=== PATIENT | male | born 1945 | race Hispanic/Latino ===

== ENCOUNTER 2025-01-16 12:28 | Emergency (ER) | payer MEDICARE ==
[~2025-01-16] VITALS: Ht 182.9 cm; Wt 88.1 kg
[2025-01-16] MEDS ORDERED: LIPITOR10 MG PO (14:07)
[2025-01-16] MEDS ORDERED: HYDROCHLOROTHIA25 MG PO (14:07)
[2025-01-16] MEDS ORDERED: AMLOD-VALSA-HC1 EAC4 PO (14:07)
[2025-01-16] MEDS ORDERED: SUPER-D3+ SOFT1 EACH PO (14:08)
[2025-01-16] MEDS ORDERED: CLONAZEPAM0.5 MG PO (14:09)
[2025-01-16] MEDS ORDERED: FLOMAX0.4 MG PO (14:09)
[2025-01-16] MEDS ORDERED: SODIUM CHLORIDE 0.9% 500 ML IV ONE (14:15)
[2025-01-16] MEDS ORDERED: ondansetron HCL 4 MG/2 ML VIAL IV ONE (14:15)
[2025-01-16 14:51] LABS: BASOPHILS 0.4 % (0-2); HEMOGLOBIN 13.6 g/dL (12.0-18.0); MCH 20.3 (27-36)
[2025-01-16 14:54] LABS: EOSINOPHILS 0.3 % (0-6); HEMATOCRIT 41.2 % (35.0-50.0); LYMPHOCYTES 10.9 % (24-44); MCHC 33.1 g/dl (30-36); MCV 61.4 fl (81-99); MONOCYTES 3.8 % (0-12); NEUTROPHILS 84.6 % (39-80); PLATELET COUNT 110 K/uL (140-440); RBC 6.71 M/ul (4.3-5.7); RDW 17.7 (10.5-15.0)
[2025-01-16 15:07] LABS: ALBUMIN 3.6 g/dL (3.4-5.0); ALBUMIN/GLOBULIN RATIO 1.06 (1.1-2.4); ANION GAP 8.4 (7-21); BILIRUBIN, TOTAL 2.5 mg/dL (0.2-1.0); BUN/CREATININE RATIO 20.43 (6.0-28.6); CALCIUM 8.5 mg/dL (8.5-10.1); CREATININE, SERUM 0.93 mg/dL (0.70-1.30); POTASSIUM 3.4 mmol/L (3.5-5.1)
[2025-01-16] MEDS ORDERED: ONDANSETRON ODT4 MG PO (15:47)
[2025-01-16] MEDS ORDERED: MECLIZINE HCL25 MG PO (15:47)
[2025-01-16 15:55] VITALS: BP 133/68
== END 2025-01-16 15:55 | disposition home or self-care (01) ==
LOC: ED 12:28
PROVIDERS: Emergency Medicine
DX: R42 Dizziness and giddiness (principal); I10 Essential (primary) hypertension; Z79.899 Other long term (current) drug therapy
CPT/HCPCS: 36415; 80053; 83735; 85025; 85060; 96361; 96374; 99284-25; J2405; J7040